=== PATIENT | female | born 1985 | race Caucasian/White ===

== ENCOUNTER 2018-10-11 07:30 | Emergency (ER) | payer OTHER ==
[~2018-10-11] VITALS: Ht 160 cm; Wt 65.8 kg
[~2018-10-11 07:30] MED LIST: ACETAMINOPHEN-1 EAC1 PO; ALLERGY CREAM30 G1 TP; AQUAPHOR HEALIN50 GM TP; CIPRO500 MG PO; DOXYCYCLINE 10100 MG PO; HYDROCODON-ACE1 EAC7 PO; HYDROCODONE-AP1 EAC6 PO; IBUPROFEN 800800 M1 PO; JUNEL1 EAC1 PO; LIORESAL 10 MG10 MG PO; MACROBID 100 M100 M1 PO; MIRENA IUD; NAPROSYN500 MG PO; NOHOMEMEDICATIONS; NORCO 5-325 TA1 EACH PO; ONDANSETRON HCL4 M2 PO; PHENAZOPYRIDIN200 M2 PO; PREDNISONE 20 M20 M1 PO; VICOPROFEN 2001 EACH PO; WELLBUTRIN 100100 MG; WELLBUTRIN 100100 MG PO; ZOFRAN 4 MG ORAL4 MG PO; ZOFRAN4 MG PO; ZOVIA 1-50E1 EACH; ZPAK PO
[2018-10-11 08:47] VITALS: BP 110/77
== END 2018-10-11 08:49 | disposition home or self-care (01) ==
LOC: M.ERS 07:30
DX: J02.9 Acute pharyngitis, unspecified (principal); F17.210 Nicotine dependence, cigarettes, uncomplicated; F32.9 Major depressive disorder, single episode, unspecified; Z88.2 Allergy status to sulfonamides; Z88.0 Allergy status to penicillin

== ENCOUNTER 2019-02-01 19:26 | Emergency (ER) | payer OTHER ==
[~2019-02-01] VITALS: Ht 160 cm; Wt 66.7 kg
[2019-02-01 20:19] VITALS: BP 124/80
== END 2019-02-01 20:20 | disposition home or self-care (01) ==
LOC: M.ERS 19:26
DX: S61.412A Laceration without foreign body of left hand, initial encounter (principal); F17.210 Nicotine dependence, cigarettes, uncomplicated; Z88.2 Allergy status to sulfonamides; Z88.0 Allergy status to penicillin; F32.9 Major depressive disorder, single episode, unspecified; W26.0XXA Contact with knife, initial encounter; Y92.89 Other specified places as the place of occurrence of the external cause; Y93.89 Activity, other specified; Y99.8 Other external cause status

== ENCOUNTER 2019-05-17 16:51 | Emergency (ER) | payer OTHER ==
[~2019-05-17] VITALS: Ht 160 cm; Wt 70.3 kg
[2019-05-17] MEDS ORDERED: NABUMETONE 750750 M1 PO (17:58)
[2019-05-17 18:48] VITALS: BP 106/68
== END 2019-05-17 18:48 | disposition home or self-care (01) ==
LOC: M.ERS 16:51
DX: S53.21XA Traumatic rupture of right radial collateral ligament, initial encounter (principal); F17.210 Nicotine dependence, cigarettes, uncomplicated; F32.9 Major depressive disorder, single episode, unspecified; Z88.2 Allergy status to sulfonamides; Z88.0 Allergy status to penicillin; Z88.6 Allergy status to analgesic agent; W22.8XXA Striking against or struck by other objects, initial encounter; Y93.89 Activity, other specified; Y92.89 Other specified places as the place of occurrence of the external cause; Y99.8 Other external cause status

== ENCOUNTER 2019-08-01 12:14 | Emergency (ER) | payer OTHER ==
[~2019-08-01] VITALS: Ht 160 cm; Wt 70.3 kg
[~2019-08-01 12:14] MED LIST changes: +NABUMETONE 750750 M1 PO
[2019-08-01] MEDS ORDERED: TYLENOL WITH CO1 TA1 PO (12:56)
[2019-08-01] MEDS ORDERED: KEFLEX500 M1 PO (12:56)
[2019-08-01] MEDS ORDERED: LIDOCAINE VISC100 ML SWISH&SPIT (12:56)
[2019-08-01 13:19] VITALS: BP 125/81
== END 2019-08-01 13:20 | disposition home or self-care (01) ==
LOC: M.ERS 12:14
DX: K05.10 Chronic gingivitis, plaque induced (principal); K08.89 Other specified disorders of teeth and supporting structures; J02.9 Acute pharyngitis, unspecified; R20.0 Anesthesia of skin; F32.9 Major depressive disorder, single episode, unspecified; F17.210 Nicotine dependence, cigarettes, uncomplicated; Z98.51 Tubal ligation status; Z88.2 Allergy status to sulfonamides; Z88.0 Allergy status to penicillin; Z88.6 Allergy status to analgesic agent

== ENCOUNTER 2019-10-23 21:21 | Emergency (ER) | payer OTHER ==
[~2019-10-23] VITALS: Ht 160 cm; Wt 67.1 kg
[~2019-10-23 21:21] MED LIST changes: +KEFLEX500 M1 PO; +LIDOCAINE VISC100 ML SWISH&SPIT; +TYLENOL WITH CO1 TA1 PO
[2019-10-23 23:17] VITALS: BP 132/69
== END 2019-10-23 23:17 | disposition home or self-care (01) ==
LOC: M.ERS 21:21
DX: M79.671 Pain in right foot (principal); F17.210 Nicotine dependence, cigarettes, uncomplicated; Z88.2 Allergy status to sulfonamides; Z88.0 Allergy status to penicillin; Z88.6 Allergy status to analgesic agent; Z98.51 Tubal ligation status

== ENCOUNTER 2021-01-07 19:32 | Emergency (ER) | payer OTHER ==
[~2021-01-07] VITALS: Ht 160 cm; Wt 72.6 kg
[2021-01-07] MEDS ORDERED: IMITREX 50 MG T50 MG PO (19:39)
[2021-01-07] MEDS ORDERED: WELLBUTRIN 100100 MG PO (19:40)
[2021-01-07] MEDS ORDERED: DIVALPROEX SOD125 M1 PO (19:40)
[2021-01-07] MEDS ORDERED: IBUPROFEN 800800 M1 PO (20:40)
[2021-01-07 20:46] VITALS: BP 112/64
== END 2021-01-07 20:46 | disposition home or self-care (01) ==
LOC: M.ERS 19:32
DX: M25.572 Pain in left ankle and joints of left foot (principal); F17.210 Nicotine dependence, cigarettes, uncomplicated; Z88.2 Allergy status to sulfonamides; Z88.0 Allergy status to penicillin; Z98.51 Tubal ligation status